=== PATIENT | female | born 1975 | race Caucasian/White ===

== ENCOUNTER 2017-02-13 11:05 | Emergency (ER) | payer BC ==
[2017-02-13] MEDS ORDERED: Alum Hydroxide/Mag Hydroxide 30 ML, Lidocaine 2% 15 ML PO ONE ×2 (11:28)
[2017-02-13] MEDS ORDERED: Sodium Chloride 0.9% 1,000 ML IV ONE (12:08)
[2017-02-13] MEDS ORDERED: Ondansetron 4 MG/2 ML SDV IVPUSH ONE (12:09)
[2017-02-13] MEDS ORDERED: Morphine 4 MG/ML Syringe IVPUSH ONE (12:09)
[2017-02-13 14:00] VITALS: BP 128/65
--- NOTE | 2017-02-13 14:08 | EDM.PDOC ---
ED HPI GENERAL MEDICAL PROBLEM - General Stated Complaint: CHEST PAIN Time Seen by Provider: 02/13/17 11:05 Source of Information: Reports: Patient, Family History Limitations: Reports: No Limitations - History of Present Illness INITIAL COMMENTS - FREE TEXT/NARRATIVE: c/o upper sternal burning x 12h anxious, no radiation, h/o GERD, has Prevacid OTC at home, did not use had CV eval 2012 with echo, cath and MUGA. d/w [facility] who said cath and w/u was neg smokes 1 ppd works at [employer] had emesis after GI cocktail, declined repeat dose pain gone after IV Toradol w/u neg EKG low voltage with no acute changes - Related Data Allergies Allergy/AdvReac Type Severity Reaction Status Date / Time acetaminophen [From Percocet] Allergy Itching Verified 12/05/15 10:27 codeine Allergy Itching Verified 12/05/15 10:27 oxycodone HCl [From Percocet] Allergy Itching Verified 12/05/15 10:27 Home Meds: Home Meds Ibuprofen 600 mg PO ASDIRECTED PRN 06/25/13 [History] LORazepam [Ativan] 0.5 mg PO ASDIRECTED PRN 06/25/13 [History] Benzonatate [Tessalon Perle] 100 mg PO Q6HR PRN #30 capsule 12/05/15 [Rx] Lansoprazole [Prevacid] 15 mg PO DAILY #10 capsule. 02/13/17 [Rx] Past Medical History Cardiovascular History: Reports: SOB on Exertion, Other (See Below) Other Cardiovascular History: angiogram Respiratory History: Reports: Bronchitis, Recurrent, Pneumonia, Recurrent Psychiatric History: Reports: Anxiety, Depression Social & Family History - Tobacco Use Smoking Status *Q: Current Every Day Smoker Years of Tobacco use: 20 Packs/Tins Daily: 1.5 Second Hand Smoke Exposure: No - Alcohol Use Days Per Week of Alcohol Use: 4 Number of Drinks Per Day: 2 Total Drinks Per Week: 8 - Recreational Drug Use Recreational Drug Use: No ED ROS GENERAL - Review of Systems Review Of Systems: See Below Constitutional: Reports: No Symptoms HEENT: Reports: No Symptoms Respiratory: Reports: No Symptoms. Denies: Shortness of Breath Cardiovascular: Reports: Chest Pain Endocrine: Reports: No Symptoms GI/Abdominal: Reports: No Symptoms : Reports: No Symptoms Musculoskeletal: Reports: No Symptoms Skin: Reports: No Symptoms Neurological: Reports: No Symptoms Psychiatric: Reports: No Symptoms Hematologic/Lymphatic: Reports: No Symptoms Immunologic: Reports: No Symptoms ED EXAM, GI/ABD - Physical Exam Exam: See Below Exam Limited By: No Limitations General Appearance: Alert, WD/WN, Anxious Ears: Normal External Exam Nose: Normal Inspection Throat/Mouth: Normal Inspection, Normal Oropharynx, Normal Voice, No Airway Compromise Head: Atraumatic, Normocephalic Neck: Normal Inspection, Supple, Non-Tender, Full Range of Motion Respiratory/Chest: No Respiratory Distress, Lungs Clear, Normal Breath Sounds, No Accessory Muscle Use, Chest Non-Tender, Other (sternum and ribs NT) Cardiovascular: Regular Rate, Rhythm, No Edema, No Gallop, No JVD, No Rub, Other (2/6 MAEGAN at LSB) GI/Abdominal Exam: Normal Bowel Sounds, Soft, Non-Tender, No Organomegaly, No Distention, No Mass Back Exam: Normal Inspection, Full Range of Motion, NT Extremities: Normal Inspection, Normal Range of Motion, Non-Tender, No Pedal Edema Neurological: Alert, Oriented, CN II-XII Intact, Normal Cognition, Normal Gait, Normal Reflexes, No Motor/Sensory Deficits Psychiatric: Anxious, Other (walking, more relaxed at time of d/c) Skin Exam: Warm, Dry, Intact, Normal Color, No Rash Lymphatic: No Adenopathy Course - Vital Signs Last Recorded V/S: Last Vital Signs Temp 36.4 C 02/13/17 13:08 Pulse 56 L 02/13/17 13:08 Resp 20 02/13/17 13:08 BP 128/65 02/13/17 13:08 Pulse Ox 95 02/13/17 13:08 - Orders/Labs/Meds Orders: Active Orders 24 hr Category Date Time Status EKG 12 Lead [EK] Routine Ther 02/13/17 11:27 Ordered Labs: Laboratory Tests 02/13/17 02/13/17 02/13/17 Range/Units 11:33 11:33 11:33 WBC 10.0 (4.5-12.0) X10-3/uL RBC 4.77 (3.23-5.20) x10(6)uL Hgb 15.2 (11.5-15.5) g/dL Hct 44.7 (30.0-51.3) % MCV 93.8 (80-96) fL MCH 31.8 (27.7-33.6) pg MCHC 33.9 (32.2-35.4) g/dL RDW 13.2 (11.5-15.5) % Plt Count 288 (125-369) X10(3)uL MPV 8.3 (7.4-10.4) fL Neut % (Auto) 65.5 (46-82) % Lymph % (Auto) 25.6 (13-37) % Logan % (Auto) 6.3 (4-12) % Eos % (Auto) 2 (1.0-5.0) % Baso % (Auto) 1 (0-2) % Neut # (Auto) 6.6 (1.6-8.3) # Lymph # (Auto) 2.5 (0.6-5.0) # Logan # (Auto) 0.6 (0.0-1.3) # Eos # (Auto) 0.2 (0.0-0.8) # Baso # (Auto) 0.1 (0.0-0.2) # D-Dimer, Quantitative < 100 L (100-400) ng/mL Sodium 135 (135-145) mmol/L Potassium 3.8 (3.5-5.3) mmol/L Chloride 104 (100-110) mmol/L Carbon Dioxide 23 (23-29) mmol/L BUN 12 (5-20) mg/dL Creatinine 0.8 (0.6-1.3) mg/dL Est Cr Clr Drug Dosing TNP Estimated GFR (MDRD) > 60 (>60) BUN/Creatinine Ratio 15.0 (9-20) Glucose 121 H (80-116) mg/dL Calcium 8.5 L (8.6-10.2) mg/dL Total Bilirubin 0.4 (0.1-1.3) mg/dL AST 18 (5-27) IU/L ALT 15 (14-26) IU/L Alkaline Phosphatase 73 (56-112) IU/L Troponin I (0.02-0.06) NG/ML Total Protein 7.6 (6.0-8.0) g/dL Albumin 3.9 (3.5-5.2) g/dL Globulin 3.7 g/dL Albumin/Globulin Ratio 1.1 02/13/17 Range/Units 11:33 WBC (4.5-12.0) X10-3/uL RBC (3.23-5.20) x10(6)uL Hgb (11.5-15.5) g/dL Hct (30.0-51.3) % MCV (80-96) fL MCH (27.7-33.6) pg MCHC (32.2-35.4) g/dL RDW (11.5-15.5) % Plt Count (125-369) X10(3)uL MPV (7.4-10.4) fL Neut % (Auto) (46-82) % Lymph % (Auto) (13-37) % Logan % (Auto) (4-12) % Eos % (Auto) (1.0-5.0) % Baso % (Auto) (0-2) % Neut # (Auto) (1.6-8.3) # Lymph # (Auto) (0.6-5.0) # Logan # (Auto) (0.0-1.3) # Eos # (Auto) (0.0-0.8) # Baso # (Auto) (0.0-0.2) # D-Dimer, Quantitative (100-400) ng/mL Sodium (135-145) mmol/L Potassium (3.5-5.3) mmol/L Chloride (100-110) mmol/L Carbon Dioxide (23-29) mmol/L BUN (5-20) mg/dL Creatinine (0.6-1.3) mg/dL Est Cr Clr Drug Dosing Estimated GFR (MDRD) (>60) BUN/Creatinine Ratio (9-20) Glucose (80-116) mg/dL Calcium (8.6-10.2) mg/dL Total Bilirubin (0.1-1.3) mg/dL AST (5-27) IU/L ALT (14-26) IU/L Alkaline Phosphatase (56-112) IU/L Troponin I < 0.01 L (0.02-0.06) NG/ML Total Protein (6.0-8.0) g/dL Albumin (3.5-5.2) g/dL Globulin g/dL Albumin/Globulin Ratio Meds: Medications Discontinued Medications Generic Name Dose Route Start Last Admin Trade Name Natalie PRN Reason Stop Dose Admin Al Hydroxide/Mg Hydroxide 30 0 ml 02/13/17 11:28 02/13/17 11:38 ml/ Lidocaine HCl 15 ml PO 02/13/17 11:29 45 ml ONETIME ONE Administration Sodium Chloride 1,000 mls @ 999 mls/hr 02/13/17 12:08 02/13/17 12:30 Normal Saline IV 02/13/17 13:08 999 mls/hr .BOLUS ONE Administration Morphine Sulfate 4 mg 02/13/17 12:09 02/13/17 12:38 Morphine IVPUSH 02/13/17 12:10 4 mg ONETIME ONE Administration Ondansetron HCl 4 mg 02/13/17 12:09 02/13/17 12:31 Zofran IVPUSH 02/13/17 12:10 4 mg ONETIME ONE Administration Departure - Departure Time of Disposition: 14:06 Disposition: Home, Self-Care 01 Condition: Good Clinical Impression: GERD (gastroesophageal reflux disease) Qualifiers: Esophagitis presence: without esophagitis Qualified Code(s): K21.9 - Gastro- esophageal reflux disease without esophagitis - Discharge Information Prescriptions: Lansoprazole [Prevacid] 15 mg PO DAILY #10 capsule.dr Instructions: Gastroesophageal Reflux Disease, Adult Referrals: Lindy Falcon PA [Primary Care Provider] - Additional Instructions: To decrease acid production, take Prevacid 15 mg 1 tab daily for 10 days. To neutralize acid, take liquid antacid 15-30 cc 2 hours after meals and bedtime for 10 days. For pain, as needed, take ibuprofen 200 mg 3 tabs 4 times a day. See your doctor in 2-3 days. Return to ED if you are feeling worse. Call your Physician or Return to Emergency Department if: * Your condition worsens in any way. * You develop fever greater than 100.4. * You have vomitting that does not stop with medications. * You have pain that is not controlled with medications. - My Orders Last 24 Hours: My Active Orders 02/13/17 11:27 EKG 12 Lead [EK] Routine - Assessment/Plan Last 24 Hours: My Active Orders 02/13/17 11:27 EKG 12 Lead [EK] Routine
== END 2017-02-13 14:35 | disposition home or self-care (01) ==
LOC: FB.ED 11:05
DX: K21.9 Gastro-esophageal reflux disease without esophagitis (principal); F32.9 Major depressive disorder, single episode, unspecified; F17.210 Nicotine dependence, cigarettes, uncomplicated; Z79.899 Other long term (current) drug therapy; Z88.5 Allergy status to narcotic agent; Z88.6 Allergy status to analgesic agent
CPT/HCPCS: 36415; 80053; 84484; 85025; 85379; 93005; 96361; 96374; 96375; 99285; A9270; J2270; J2405; J7040

== ENCOUNTER 2022-10-17 10:29 | Emergency (ER) | payer BC, MEDICARE ==
[2022-10-17 11:16] LABS: BASOPHILS ABSOLUTE AUTO 0.1 x10-3/uL (0.0-0.1); BASOPHILS PERCENT AUTO 0.9 % (0.2-1.5); EOSINOPHILS ABSOLUTE AUTO 0.2 x10-3/uL (0.0-0.8); EOSINOPHILS PERCENT AUTO 1.6 % (0.6-8.1); HEMATOCRIT 42.4 % (34.2-48.2); HEMOGLOBIN 14.2 g/dL (11.4-15.5); LYMPHOCYTES ABSOLUTE AUTO 2.6 x10-3/uL (1.0-4.4); LYMPHOCYTES PERCENT AUTO 25.4 % (18.4-52.1); MEAN CORPUSCULAR HEMOGLOBIN 31.7 pg (23.9-33.9); MEAN CORPUSCULAR HGB CONC 33.4 g/dL (31.9-34.8); MEAN CORPUSCULAR VOLUME 94.8 fL (76.7-100.5); MEAN PLATELET VOLUME 7.8 fL (7.1-12.4); MONOCYTES ABSOLUTE AUTO 0.8 x10-3/uL (0.3-1.0); NEUTROPHILS ABSOLUTE AUTO 6.5 x10-3/uL (1.5-6.3); NEUTROPHILS PERCENT AUTO 64.1 % (30.8-76.2); PLATELET COUNT,PLT 252 x10(3)uL (151-488); RED BLOOD CELL COUNT 4.47 x10(6)uL (3.60-5.20); RED CELL DISTRIBUTION WIDTH 13.7 % (12.3-16.5); WHITE BLOOD CELL COUNT,WBC 10.1 x10-3/uL (3.0-10.3)
[2022-10-17 11:18] LABS: BLOOD UREA NITROGEN,BUN 4 mg/dL (7-18); BUN/CREATININE RATIO 4.4 (9-20); CARBON DIOXIDE,CO2 24 mmol/L (21-32); CHLORIDE,CL 108 mmol/L (100-110); CREATININE 0.9 mg/dL (0.55-1.02); ESTIMATED GFR 80 mL/min (>60); GLUCOSE RANDOM 97 mg/dL (80-116); POTASSIUM,K 3.9 mmol/L (3.5-5.3); SODIUM,NA 141 mmol/L (135-145)
[2022-10-17] MEDS: Sodium Chloride 0.9% 10 ML Syringe FLUSH PRN (11:20)
[2022-10-17 11:24] LABS: ALANINE AMINOTRANSFERASE,ALT 20 U/L (12-36); ALKALINE PHOSPHATASE 118 IU/L (56-112); ASPARTATE AMNIOTRANSFERASE,AST 19 IU/L (5-25); BILIRUBIN TOTAL 0.2 mg/dL (0.1-1.3); PROTEIN TOTAL,TP 6.1 g/dL (6.0-8.0)
[2022-10-17 11:25] LABS: D-DIMER QUANTITATIVE 0.2 mg/LFEU (0.0-0.59); INR 0.94 (1.00-1.24); PROTHROMBIN TIME 9.7 sec (9.0-11.1); PTT,PARTIAL THROMBOPLSTIN TIME 24.5 SECONDS (24.4-33.2)
[2022-10-17] MEDS: Ketorolac 30 MG/ML SDV IVPUSH ONE (11:25)
[2022-10-17 11:29] LABS: TROPONIN I 4.4 pg/mL (4.0-60.3)
[2022-10-17] MEDS: Aspirin 81 MG Tab.Chew PO ONE (11:31)
[2022-10-17] MEDS: Ondansetron 4 MG/2 ML SDV IVPUSH ONE (11:32)
[2022-10-17 12:46] VITALS: BP 109/76; PULSE 59
== END 2022-10-17 12:28 | disposition home or self-care (01) ==
LOC: FB.ED 10:29
DX: R07.81 Pleurodynia (principal); Z88.5 Allergy status to narcotic agent
CPT/HCPCS: 36415; 71045; 80053; 83880; 84484; 85025; 85379; 85610; 85730; 93005; 96374; 96375; 99285; A9270; J1885; J2405; J3490

== ENCOUNTER 2024-07-10 06:17 | Day surgery (SDC) | payer MEDICARE, MEDICAID ==
[~2024-07-10 06:17] MED LIST: Lactated Ringers 1,000 ML IV SCH; Sodium Chloride 0.9% 10 ML Syringe FLUSH PRN
[2024-07-10] MEDS ORDERED: Lidocaine 2% 100 MG/5 ML Syringe IVPUSH ONE (06:18)
[2024-07-10] MEDS ORDERED: Propofol 200 MG/20 ML SDV IV ONE (06:18)
[2024-07-10] MEDS ORDERED: Ketamine 500 mg/10 ML MDV IV ONE (06:18)
[2024-07-10] MEDS ORDERED: Midazolam 1 MG/ML 2 ML SDV IV ONE (06:18)
[2024-07-10] MEDS: Lactated Ringers 1,000 ML IV SCH (07:06)
[2024-07-10 08:54] VITALS: BP 126/79; PULSE 66
== END 2024-07-10 08:53 | disposition home or self-care (01) ==
LOC: FB.SDS 06:17
PROVIDERS: ATTEND Surgery
DX: Z12.11 Encounter for screening for malignant neoplasm of colon (principal); D17.5 Benign lipomatous neoplasm of intra-abdominal organs; I25.10 Atherosclerotic heart disease of native coronary artery without angina pectoris; E66.9 Obesity, unspecified; F17.210 Nicotine dependence, cigarettes, uncomplicated; Z68.41 Body mass index [BMI] 40.0-44.9, adult; Z86.0101 Personal history of adenomatous and serrated colon polyps; Z79.899 Other long term (current) drug therapy; Z79.84 Long term (current) use of oral hypoglycemic drugs; Z88.5 Allergy status to narcotic agent
CPT/HCPCS: 00811; J2250; J2704; J3490; J7120